=== PATIENT | female | born 2000 | race Caucasian/White ===

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

== ENCOUNTER → 2022-05-15 | Outpatient (CLI) | payer OTHER ==
[~2022-05-15] MED LIST changes: +ALBU90OI INH
[2022-05-15 14:09] LABS: Source, Urine Clean Catch
[2022-05-15 18:00] LABS: Appearance, Urine Clear (Clear); Bilirubin, Urine Neg (Neg); Blood, Urine Neg (Neg); Glucose Qualitative, Urine Neg (Neg); Ketones, Urine Neg (Neg); Leukocyte Esterase, Urine Neg (Neg); Nitrite, Urine Neg (Neg); Protein, Urine Neg (Neg); Urobilinogen, Urine NORM (Normal); pH, Urine 6.5 (5.0-8.0)
[2022-05-15 18:11] LABS: Color, Urine Pale Yellow (P-Yellow)
== END | disposition home or self-care (01) ==
LOC: LAB SHORT 14:00 → LAB 14:00
PROVIDERS: Registered Nurse Community Health
DX: R10.2 Pelvic and perineal pain (principal); G89.29 Other chronic pain
CPT/HCPCS: 81003

== ENCOUNTER → 2022-12-24 | Outpatient (CLI) | payer OTHER | LOC: LAB 15:15 → LAB SHORT 15:15 | DX: N91.2 Amenorrhea, unspecified (principal) | CPT/HCPCS: 84702 ==

== ENCOUNTER 2023-09-02 02:58 | Inpatient (IN) | payer OTHER ==
[2023-09-02] VITALS (52 sets, daily range): BP systolic 83–141; BP diastolic 46–92
[~2023-09-02] VITALS: Ht 162.6 cm; Wt 87.7 kg
[2023-09-02] MEDS ORDERED: Castor Oil 59.146 ML BTL TOP SCH (03:50)
[2023-09-02] MEDS ORDERED: Methylergonovine Maleate 0.2MG / ML 1ML Amp IM SCH (03:50)
[2023-09-02] MEDS ORDERED: FentaNYL Citrate 50 MCG/ML 2 ML Injection IV PRN (03:50)
[2023-09-02] MEDS ORDERED: Misoprostol 200 MCG Tab PR SCH (03:50)
[2023-09-02] MEDS ORDERED: Oxytocin 10 Unit / ML Vial IM SCH (03:50)
[2023-09-02] MEDS ORDERED: Calcium Carbonate 500 MG Tab Chew PO PRN (03:50)
[2023-09-02] MEDS ORDERED: Lactated Ringer's 1,000 ML IV PRN (03:50)
[2023-09-02] MEDS ORDERED: Lidocaine HCl 1% 30 ML SDV XX SCH (03:50)
[2023-09-02] MEDS ORDERED: Bupivacaine 0.5% HCl 5 MG/ML 30MLVIAL XX SCH (03:50)
[2023-09-02] MEDS ORDERED: Bupivacaine HCl 2.5 MG/ML 10ML P/F Injection XX SCH (03:50)
[2023-09-02] MEDS ORDERED: OXYTOCIN/RINGER'S LACTATE 500 ML IV SCH (03:50)
[2023-09-02] MEDS ORDERED: Ondansetron HCl 2 MG / ML 2ML Vial IV PRN (03:50)
[2023-09-02] MEDS ORDERED: PRENATAL TABLE1 EAC2 PO (04:00)
[2023-09-02 08:32] LABS: BASOPHILS ABSOLUTE AUTO 0.02 K/mm3 (0.00-0.23); BASOPHILS PERCENT AUTO 0 % (0-2); EOSINOPHILS ABSOLUTE AUTO 0.02 K/mm3 (0.00-0.68); EOSINOPHILS PERCENT AUTO 0 % (0-6); Hematocrit 35.1 % (33.0-51.0); Hemoglobin 11.6 g/dL (11.5-16.0); IMMATURE GRAN ABSOLUTE AUTO 0.12 K/mm3 (0.00-0.10); IMMATURE GRAN PERCENT AUTO 1 % (0-1); LYMPHOCYTES ABSOLUTE AUTO 1.74 K/mm3 (0.84-5.20); LYMPHOCYTES PERCENT AUTO 14 % (21-46); MONOCYTES ABSOLUTE AUTO 0.89 K/mm3 (0.16-1.47); MONOCYTES PERCENT AUTO 7 % (4-13); Mean Corpuscular Volume 85 fL (80-100); Mean Platelet Volume 10.8 fL (9.1-12.4); NEUTROPHILS ABSOLUTE AUTO 9.48 K/mm3 (1.96-9.15); NEUTROPHILS PERCENT AUTO 77 % (41-73); Platelet Count 228 K/mm3 (150-400); RDW Coefficient Variation 14.4 % (11.7-14.2); RDW Standard Deviation 43.8 fL (35.1-46.3); Red Blood Cell Count 4.15 M/mm3 (3.80-5.20); White Blood Cell Count 12.27 K/mm3 (4.00-11.30)
[2023-09-02] MEDS ORDERED: FentaNYL 2mcg/ml-Bup 0.1% Epd 250 ML EPI PRN (12:40)
[2023-09-02] MEDS ORDERED: Lactated Ringer's 1,000 ML IV SCH ×3 (12:40→22:00)
[2023-09-02] MEDS ORDERED: ePHEDrine Sulfate 50 MG/ML 1ML Injection XX PRN (12:40)
[2023-09-02] MEDS ORDERED: NS 1,000 ML BAG IR ONE ×2 (19:00→19:20)
[2023-09-02] MEDS ORDERED: CeFAZolin Sodium 2,000 MG in NS 100 ML IV SCH (22:00)
[2023-09-02] MEDS ORDERED: Acetaminophen 500 MG Tab PO ONE (22:05)
[2023-09-02] MEDS ORDERED: Azithromycin 500 MG in NS 250 ML IV ONE (22:10)
[2023-09-02] MEDS ORDERED: Metoclopramide HCl 5MG / ML 2ML Vial ONE (22:39)
[2023-09-02] MEDS ORDERED: Citric Acid/Sodium Citrate 30 ML BTL ONE (22:39)
[2023-09-02] MEDS ORDERED: FentaNYL Citrate 50 MCG/ML 2 ML Injection ONE (22:44)
[2023-09-02] MEDS ORDERED: Lidocaine HCl 2% 10 ML SDA ONE (22:44)
[2023-09-02] MEDS ORDERED: Morphine Sulfate/PF 1 MG/ML 10MLVIAL ONE (22:48)
[2023-09-02] MEDS ORDERED: Oxytocin 10 Unit / ML Vial ONE (22:48)
[2023-09-02] MEDS ORDERED: Sodium Bicarb 8.4% 1 MEQ/ML 50 ML Vial ONE (22:49)
[2023-09-02] MEDS ORDERED: Albuterol HFA200 ACT/6.7 GM INH INH PRN (23:10)
[2023-09-02] MEDS ORDERED: Lactated Ringer's 1,000 ML IV ONE (23:27)
[2023-09-02] MEDS ORDERED: Citric Acid/Sodium Citrate 30 ML BTL PO SCH (23:30)
[2023-09-02] MEDS ORDERED: Metoclopramide HCl 5MG / ML 2ML Vial IV SCH (23:30)
[2023-09-03] VITALS (18 sets, daily range): BP systolic 99–138; BP diastolic 55–101
[2023-09-03] MEDS ORDERED: Promethazine HCl 12.5 MG Supp PR PRN (00:35)
[2023-09-03] MEDS ORDERED: LR Oxytocin 20 Units 1,000 ML IV SCH (00:40)
[2023-09-03] MEDS ORDERED: OxyCODONE 5 mg/Acetamin 325 mg TABLET PO PRN (00:40)
[2023-09-03] MEDS ORDERED: Acetaminophen 500 MG Tab PO PRN (00:40)
[2023-09-03] MEDS ORDERED: Magnesium Hydroxide Conc 10 ML UDC PO PRN (00:40)
[2023-09-03] MEDS ORDERED: Promethazine HCl 25 MG Supp PR PRN (00:40)
[2023-09-03] MEDS ORDERED: Lanolin Cream TOP PRN (00:45)
[2023-09-03] MEDS ORDERED: Ondansetron HCl 2 MG / ML 2ML Vial IV PRN (00:45)
[2023-09-03] MEDS ORDERED: Lactated Ringer's 1,000 ML IV SCH (00:45)
[2023-09-03] MEDS ORDERED: Promethazine HCl 25 MG Tab PO PRN (00:45)
[2023-09-03] MEDS ORDERED: Morphine Sulfate 4 MG/1 ML Injection IV PRN (00:45)
[2023-09-03] MEDS ORDERED: Methylergonovine Maleate 0.2MG / ML 1ML Amp IM PRN (00:45)
[2023-09-03] MEDS ORDERED: Misoprostol 200 MCG Tab PR PRN (00:50)
[2023-09-03] MEDS ORDERED: Simethicone 80 MG Chew PO PRN (00:50)
[2023-09-03] MEDS ORDERED: Ketorolac Tromethamine 30mg Vial IV SCH (01:00)
[2023-09-03] MEDS ORDERED: Tranexamic Acid 100 ML IV PRN (01:05)
[2023-09-03] MEDS ORDERED: Ibuprofen 400 MG Tab PO PRN (01:50)
[2023-09-03] MEDS ORDERED: Ketorolac Tromethamine 30mg Vial IV PRN (02:00)
[2023-09-03] MEDS ORDERED: CeFAZolin Sodium 2,000 MG in NS 100 ML IV SCH (07:00)
[2023-09-03] MEDS ORDERED: Ibuprofen 400 MG Tab PO SCH (08:00)
[2023-09-03] MEDS ORDERED: Docusate Sodium 100 MG Cap PO SCH (09:00)
[2023-09-03] MEDS ORDERED: Prenatal Vit/FE Fumarate/FA 1 Tab PO SCH (09:00)
[2023-09-03 10:10] LABS: BASOPHILS ABSOLUTE AUTO 0.02 K/mm3 (0.00-0.23); BASOPHILS PERCENT AUTO 0 % (0-2); EOSINOPHILS PERCENT AUTO 0 % (0-6); Hematocrit 28.1 % (33.0-51.0); Hemoglobin 9.3 g/dL (11.5-16.0); IMMATURE GRAN ABSOLUTE AUTO 0.12 K/mm3 (0.00-0.10); IMMATURE GRAN PERCENT AUTO 1 % (0-1); LYMPHOCYTES ABSOLUTE AUTO 0.69 K/mm3 (0.84-5.20); LYMPHOCYTES PERCENT AUTO 3 % (21-46); MONOCYTES PERCENT AUTO 6 % (4-13); Mean Corpuscular HGB 28.3 pg (26.0-34.0); Mean Corpuscular HGB Conc 33.1 g/dL (31.5-36.5); Mean Corpuscular Volume 85 fL (80-100); Mean Platelet Volume 10.5 fL (9.1-12.4); NEUTROPHILS ABSOLUTE AUTO 18.98 K/mm3 (1.96-9.15); NEUTROPHILS PERCENT AUTO 90 % (41-73); Platelet Count 206 K/mm3 (150-400); RDW Coefficient Variation 14.6 % (11.7-14.2); RDW Standard Deviation 44.9 fL (35.1-46.3); Red Blood Cell Count 3.29 M/mm3 (3.80-5.20); White Blood Cell Count 21.01 K/mm3 (4.00-11.30)
[2023-09-03] MEDS ORDERED: Sod Ferric Gluc Complx/Sucrose 125 MG in NS 100 ML IV ONE (12:45)
--- NOTE | 2023-09-03 12:53 | NUR ---
ASSUMED CARE OF PT FROM MICHAEL TORIBIO AT APPROX 0900.
[2023-09-04 05:25] VITALS: BP 115/73
[2023-09-04 07:35] VITALS: BP 118/66
[2023-09-04 09:55] LABS: Hematocrit 26.8 % (33.0-51.0); Hemoglobin 8.7 g/dL (11.5-16.0); Mean Corpuscular HGB 28.1 pg (26.0-34.0); Mean Corpuscular HGB Conc 32.5 g/dL (31.5-36.5); Mean Corpuscular Volume 87 fL (80-100); Mean Platelet Volume 10.2 fL (9.1-12.4); Platelet Count 192 K/mm3 (150-400); RDW Coefficient Variation 15.1 % (11.7-14.2); RDW Standard Deviation 45.9 fL (35.1-46.3); White Blood Cell Count 13.34 K/mm3 (4.00-11.30)
[2023-09-04 12:46] VITALS: BP 124/72
[2023-09-04 15:52] VITALS: BP 120/61
[2023-09-04 19:38] VITALS: BP 125/79
[2023-09-04] MEDS ORDERED: Magnesium Hydroxide Conc 10 ML UDC PO SCH (21:00)
[2023-09-05 00:16] VITALS: BP 109/62
[2023-09-05 06:13] VITALS: BP 120/70
[2023-09-05] MEDS ORDERED: Percocet 5-3251 EACH PO (07:40)
[2023-09-05] MEDS ORDERED: DOCU100 PO (07:41)
[2023-09-05] MEDS ORDERED: IBUP800 PO (07:41)
[2023-09-05 08:24] VITALS: BP 116/74
== END 2023-09-05 13:35 | disposition home or self-care (01) | DRG 786 ==
LOC: OBS 02:58 → BC 02:59 → OBS 03:40 → BC 03:40
PROVIDERS: Obstetrics & Gynecology; ADMIT Advanced Practice Midwife
PROC: 10D00Z1 Extraction of Products of Conception, Low, Open Approach (ICD-10-PCS; principal; 2023-09-02 22:00)
DX: O48.0 Post-term pregnancy (principal); O41.1230 Chorioamnionitis, third trimester, not applicable or unspecified; O99.324 Drug use complicating childbirth; O47.1 False labor at or after 37 completed weeks of gestation; Z37.0 Single live birth; O62.1 Secondary uterine inertia; Z3A.40 40 weeks gestation of pregnancy; O90.81 Anemia of the puerperium; D50.0 Iron deficiency anemia secondary to blood loss (chronic); O77.0 Labor and delivery complicated by meconium in amniotic fluid; F12.90 Cannabis use, unspecified, uncomplicated; Z88.8 Allergy status to other drugs, medicaments and biological substances; Z79.899 Other long term (current) drug therapy; Z79.51 Long term (current) use of inhaled steroids
CPT/HCPCS: 36415; 51702; 59025; 59070; 81003; 85025; 85027; 86850; 86900; 86901; 86923; 99214; A9270; J0456; J0690; J1885; J2001; J2274; J2590; J2765; J2916; J3010; J7030; J7050; J7120